=== PATIENT | female | born 1970 | race African-American/Black ===

== ENCOUNTER 2017-03-09 10:12 | Emergency (ER) | payer BC ==
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
--- NOTE | 2017-03-09 11:58 | RAD ---
INDICATION: RIGHT side nerve pain and tingling for 6 months. COMPARISON: No relevant prior exams available on the [facility] PACS for comparison. TECHNIQUE: Multidetector CT images foramen magnum to lung apices without contrast. Multiplanar reformation. REPORT: Normal vertebral alignment accounting for exam positioning without spondylolisthesis or subluxation at any level. Negative for cervical vertebral body or posterior element fracture. Negative for paravertebral hematoma. Mild osteophytosis and moderate joint space narrowing at the articulation between the dens and the anterior arch of C1 consistent with osteoarthritis. At C3-C4 there is mild dorsal disc bulge without resulting impingement on the neural structures. At C4-C5 there is moderate disc space narrowing and mild dorsal disc osteophyte complex without resulting impingement on the thecal sac. Uncinate process spurring noted without significant resulting foraminal stenosis. At C5-C6 there is mild disc space narrowing and minimal dorsal disc osteophyte complex without resulting impingement on the neural structures. At C6-C7 there is moderately severe disc space narrowing and moderately large dorsal disc osteophyte complex without significant resulting central canal stenosis. Uncinate process spurring and facet joint osteoarthritis results in mild bilateral foraminal stenosis. IMPRESSION: 1. No traumatic injury of the cervical spine evident. 2. Multilevel degenerative spondylosis and mild posterior element osteoarthritis as described.
[2017-03-09 13:26] VITALS: BP 162/81
== END 2017-03-09 12:11 | disposition home or self-care (01) ==
LOC: ED 10:12
DX: R20.0 Anesthesia of skin (principal); M54.5 Low back pain; F17.210 Nicotine dependence, cigarettes, uncomplicated
CPT/HCPCS: 72125; 99282